=== PATIENT | female | born 1955 | race Caucasian/White ===

== ENCOUNTER → 2023-05-04 09:52 | Outpatient (REF) | payer MEDICARE, SELFPAY | LOC: WDC 09:52 | PROVIDERS: ATTENDING PHYSICIAN Family Medicine | DX: R92.8 Other abnormal and inconclusive findings on diagnostic imaging of breast (principal) | CPT/HCPCS: 76642; 77065 ==

== ENCOUNTER → 2024-05-03 08:29 | Outpatient (REF) | payer MEDICARE, SELFPAY | LOC: WDC 08:29 | PROVIDERS: ATTENDING PHYSICIAN Family Medicine | DX: Z12.31 Encounter for screening mammogram for malignant neoplasm of breast (principal) | CPT/HCPCS: 77063; 77067 ==

== ENCOUNTER → 2024-05-09 08:53 | Outpatient (REF) | payer MEDICARE, SELFPAY | LOC: WDC 08:53 | PROVIDERS: ATTENDING PHYSICIAN Family Medicine | DX: R92.8 Other abnormal and inconclusive findings on diagnostic imaging of breast (principal) | CPT/HCPCS: 76642 ==